=== PATIENT | female | born 1945 | race African-American/Black ===

== ENCOUNTER 2016-09-30 11:28 | Inpatient (IN) | payer MEDICARE, MEDICAID ==
[~2016-09-30] VITALS: Ht 165.1 cm; Wt 65.8 kg
[~2016-09-30 11:28] MED LIST: CLON0.1T PO; LISI-604 PO
[2016-09-30 12:43] LABS: BASOPHILS % 0.4 % (0.0-2.0); DIFFERENTIAL COMMENT 0; EOSINOPHILS % 0.6 % (0.0-5.0); HEMATOCRIT. 40.4 % (36.0-48.0); HEMOGLOBIN. 13.3 g/dL (12.0-16.0); LYMPHOCYTES % 36.7 % (20.0-50.0); MEAN CORPUSCULAR HEMOGLOBIN 26.1 pg (28.0-32.0); MEAN CORPUSCULAR VOLUME 79.2 fL (81.0-99.0); MEAN PLATELET VOLUME 7.9 fl (7.4-10.4); MONOCYTES % 8.5 % (2.0-8.0); NEUTROPHILS % 53.8 % (40.0-76.0); PLATELET 253 x1000/uL (130-400); RED CELL DISTRIBUTION WIDTH 15.5 % (11.6-14.6); WHITE BLOOD COUNT 6.1 x1000/uL (4.5-11.0)
[2016-09-30 12:48] LABS: GLUCOSE URINE NEGATIVE (NEGATIVE); KETONES URINE 2+ (NEGATIVE); LEUKOCYTE ESTERASE URINE 3+ (NEGATIVE); NITRITE URINE NEGATIVE (NEGATIVE); OCCULT BLOOD URINE TRACE (NEGATIVE); PROTEIN URINE 1+ (NEGATIVE); SPECIFIC GRAVITY URINE 1.018 (1.005-1.030)
[2016-09-30 12:49] LABS: CLARITY URINE CLOUDY (CLEAR); COLOR URINE YELLOW (YELLOW)
[2016-09-30 12:49] LABS: CHLORIDE 107 mEq/L (98-107); INDEX HEMOLYSI 2 (1-3); INDEX ICTERIC 1 (1-4); INDEX LIPEMIC 1 (1-3)
[2016-09-30 12:58] LABS: ALANINE AMINOTRANSFERASE 13 IU/L (13-61); ALBUMIN 3.1 g/dL (3.4-5.0); ANION GAP 11; CALCIUM 9.7 mg/dL (8.5-10.1); CARBON DIOXIDE 31 mEq/L (21-32); UREA NITROGEN BLOOD 21 mg/dL (7-21); eGFR > 60 mL/min (>60)
[2016-09-30 13:05] LABS: WBC URINE 15-25 /hpf (0-2)
[2016-09-30 13:06] LABS: BACTERIA URINE 1+; RBC URINE 0-2 /hpf (0-2); SQUAMOUS EPITHELIAL CELL URINE RARE /lpf (RARE/1+)
[2016-09-30] MEDS ORDERED: CEFTRIAXONE 1 G PREMIX 50 ML IV ONE (13:15)
[2016-09-30] MEDS ORDERED: SODIUM CHLORIDE 0.9% 1,000 ML IV ONE (16:09)
[2016-09-30 21:26] VITALS: BP 146/97
[2016-09-30 22:00] VITALS: BP 134/90
[2016-09-30] MEDS ORDERED: DOCUSATE SODIUM 100MG CAPSULE PO PRN (22:45)
[2016-09-30] MEDS ORDERED: IPRATROPIUM/ALBUTEROL 0.5-3(2.5)MG/3ML NEB INH PRN (22:45)
[2016-09-30] MEDS ORDERED: CLONIDINE 0.1MG TABLET PO PRN (22:45)
[2016-09-30] MEDS ORDERED: GUAIFENESIN 200MG/10ML SUGAR FREE UDC PO PRN (22:45)
[2016-09-30] MEDS ORDERED: ONDANSETRON HCL 4MG/2ML VIAL IV PRN (22:45)
[2016-09-30] MEDS ORDERED: LEVOFLOXACIN 500MG PREMIX 100 ML IV SCH ×2 (22:45→23:00)
[2016-09-30] MEDS ORDERED: ACETAMINOPHEN 650MG SUPP PR PRN (22:45)
[2016-09-30] MEDS ORDERED: MAGNESIUM/ALUMINUM HYDROXIDE/SIMETHICONE 30ML UDC PO PRN (22:45)
[2016-09-30] MEDS ORDERED: HYDROCODONE/ACETAMINOPHEN 5/325MG TABLET PO PRN (22:45)
[2016-09-30] MEDS ORDERED: ACETAMINOPHEN 650MG/20.3ML UDC GT PRN (22:45)
[2016-10-01] VITALS: BP 134/84
[2016-10-01] MEDS: LISINOPRIL 10MG TABLET PO SCH ×2 (00:01→11:14)
[2016-10-01] MEDS: SODIUM CHLORIDE 0.9% 1,000 ML IV SCH ×2 (00:02→23:50)
[2016-10-01 04:00] VITALS: BP 110/75
[2016-10-01 05:56] LABS: BASOPHILS % 0.5 % (0.0-2.0); DIFFERENTIAL COMMENT 0; EOSINOPHILS % 1.1 % (0.0-5.0); HEMATOCRIT. 33.7 % (36.0-48.0); HEMOGLOBIN. 10.8 g/dL (12.0-16.0); LYMPHOCYTES % 32.8 % (20.0-50.0); MEAN CORPUSCULAR HEMOGLOBIN 25.6 pg (28.0-32.0); MEAN CORPUSCULAR HGB CONC 32.1 g/dL (31.0-37.0); MEAN CORPUSCULAR VOLUME 79.7 fL (81.0-99.0); MEAN PLATELET VOLUME 7.9 fl (7.4-10.4); MONOCYTES % 10.5 % (2.0-8.0); NEUTROPHILS % 55.1 % (40.0-76.0); PLATELET 223 x1000/uL (130-400); RED BLOOD CELL COUNT 4.23 mill/uL (4.2-5.4); RED CELL DISTRIBUTION WIDTH 15.3 % (11.6-14.6); WHITE BLOOD COUNT 5.9 x1000/uL (4.5-11.0)
[2016-10-01] MEDS: SODIUM CHLORIDE 0.9% INJ 3ML FLUSH IVF SCH ×3 (06:30→20:51)
[2016-10-01 06:53] LABS: ALANINE AMINOTRANSFERASE 8 IU/L (13-61); ALBUMIN 2.4 g/dL (3.4-5.0); ANION GAP 12; CALCIUM 8.6 mg/dL (8.5-10.1); CARBON DIOXIDE 26 mEq/L (21-32); CHLORIDE 110 mEq/L (98-107); HDL CHOLESTEROL 42 mg/dL (40-59); INDEX HEMOLYSI 1 (1-3); INDEX ICTERIC 1 (1-4); INDEX LIPEMIC 1 (1-3); LDL CHOLESTEROL 63 mg/dL (5-100); TRIGLYCERIDE 57 mg/dL (0-150); UREA NITROGEN BLOOD 21 mg/dL (7-21); eGFR > 60 mL/min (>60)
[2016-10-01 07:42] VITALS: BP 127/86
[2016-10-01] MEDS: THIAMINE HCL 100MG TABLET PO SCH (11:14)
[2016-10-01] MEDS: METOPROLOL TARTRATE 25MG TABLET PO SCH ×2 (11:15→17:59)
[2016-10-01] MEDS: ENOXAPARIN 40MG/0.4ML SYR SUBCUT SCH (11:16)
[2016-10-01 12:04] VITALS: BP 118/92
[2016-10-01 16:00] VITALS: BP 127/81
[2016-10-01] MEDS ORDERED: POTASSIUM CHLORIDE 20MEQ TABLET SR PO SCH (19:30)
[2016-10-01 20:02] VITALS: BP 135/88
[2016-10-01] MEDS: LEVOFLOXACIN 500MG PREMIX 100 ML IV SCH (23:48)
[2016-10-02 00:41] VITALS: BP 117/80
[2016-10-02 04:41] VITALS: BP 127/85
[2016-10-02] MEDS: SODIUM CHLORIDE 0.9% INJ 3ML FLUSH IVF SCH ×3 (05:57→22:32)
[2016-10-02 08:00] VITALS: BP 113/68
[2016-10-02] MEDS: LISINOPRIL 10MG TABLET PO SCH (08:46)
[2016-10-02] MEDS: METOPROLOL TARTRATE 25MG TABLET PO SCH ×2 (08:46→16:38)
[2016-10-02] MEDS: ENOXAPARIN 40MG/0.4ML SYR SUBCUT SCH (08:48)
[2016-10-02] MEDS: THIAMINE HCL 100MG TABLET PO SCH (08:48)
[2016-10-02 12:00] VITALS: BP 119/76
[2016-10-02 12:10] LABS: BASOPHILS % 0.5 % (0.0-2.0); DIFFERENTIAL COMMENT 0; EOSINOPHILS % 1.7 % (0.0-5.0); HEMATOCRIT. 31.3 % (36.0-48.0); HEMOGLOBIN. 10.3 g/dL (12.0-16.0); LYMPHOCYTES % 44.3 % (20.0-50.0); MEAN CORPUSCULAR HEMOGLOBIN 26.2 pg (28.0-32.0); MEAN CORPUSCULAR HGB CONC 32.8 g/dL (31.0-37.0); MEAN CORPUSCULAR VOLUME 79.8 fL (81.0-99.0); MEAN PLATELET VOLUME 8.6 fl (7.4-10.4); MONOCYTES % 11.6 % (2.0-8.0); NEUTROPHILS % 41.9 % (40.0-76.0); PLATELET 205 x1000/uL (130-400); RED BLOOD CELL COUNT 3.92 mill/uL (4.2-5.4); RED CELL DISTRIBUTION WIDTH 15.4 % (11.6-14.6); WHITE BLOOD COUNT 5.7 x1000/uL (4.5-11.0)
[2016-10-02 12:35] LABS: ALANINE AMINOTRANSFERASE 10 IU/L (13-61); ALBUMIN 2.2 g/dL (3.4-5.0); ANION GAP 9; CALCIUM 8.6 mg/dL (8.5-10.1); CARBON DIOXIDE 29 mEq/L (21-32); CHLORIDE 111 mEq/L (98-107); INDEX HEMOLYSI 1 (1-3); INDEX ICTERIC 1 (1-4); INDEX LIPEMIC 1 (1-3); UREA NITROGEN BLOOD 20 mg/dL (7-21); eGFR > 60 mL/min (>60)
[2016-10-02 15:44] VITALS: BP 107/72
[2016-10-02 20:00] VITALS: BP 131/78
[2016-10-02] MEDS: LEVOFLOXACIN 500MG PREMIX 100 ML IV SCH (22:33)
[2016-10-03] VITALS: BP 115/71
[2016-10-03] MEDS: SODIUM CHLORIDE 0.9% 1,000 ML IV SCH (03:28)
[2016-10-03] MEDS: SODIUM CHLORIDE 0.9% INJ 3ML FLUSH IVF SCH ×3 (03:28→20:37)
[2016-10-03 04:00] VITALS: BP 130/82
[2016-10-03 08:00] VITALS: BP 138/80
[2016-10-03] MEDS: METOPROLOL TARTRATE 25MG TABLET PO SCH ×3 (08:55→16:56)
[2016-10-03] MEDS: LISINOPRIL 10MG TABLET PO SCH (08:55)
[2016-10-03] MEDS: THIAMINE HCL 100MG TABLET PO SCH (08:56)
[2016-10-03] MEDS: ENOXAPARIN 40MG/0.4ML SYR SUBCUT SCH (08:58)
[2016-10-03 12:00] VITALS: BP 138/82
[2016-10-03 16:00] VITALS: BP 155/95
[2016-10-03 20:00] VITALS: BP 156/95
[2016-10-03] MEDS: LEVOFLOXACIN 500MG PREMIX 100 ML IV SCH (22:23)
[2016-10-04] VITALS: BP_SYST 149; BP_DIAS 92; BP_DIAS 93
[2016-10-04 04:00] VITALS: BP 140/95
[2016-10-04] MEDS: SODIUM CHLORIDE 0.9% INJ 3ML FLUSH IVF SCH ×3 (06:00→21:04)
[2016-10-04 08:00] VITALS: BP 124/73
[2016-10-04] MEDS: THIAMINE HCL 100MG TABLET PO SCH (08:24)
[2016-10-04] MEDS: METOPROLOL TARTRATE 25MG TABLET PO SCH ×2 (08:24→21:04)
[2016-10-04] MEDS: LISINOPRIL 10MG TABLET PO SCH (08:24)
[2016-10-04] MEDS: ENOXAPARIN 40MG/0.4ML SYR SUBCUT SCH (08:25)
[2016-10-04 12:00] VITALS: BP 135/82
[2016-10-04 16:00] VITALS: BP 152/90
[2016-10-04 20:00] VITALS: BP 136/88
[2016-10-04] MEDS: SODIUM CHLORIDE 0.9% 1,000 ML IV SCH (23:41)
[2016-10-04] MEDS: LEVOFLOXACIN 500MG PREMIX 100 ML IV SCH (23:41)
[2016-10-05] VITALS: BP 144/92
[2016-10-05 04:00] VITALS: BP 130/91
[2016-10-05] MEDS: SODIUM CHLORIDE 0.9% INJ 3ML FLUSH IVF SCH (05:32)
[2016-10-05 08:00] VITALS: BP 129/90
[2016-10-05] MEDS: METOPROLOL TARTRATE 25MG TABLET PO SCH (09:35)
[2016-10-05] MEDS: LISINOPRIL 10MG TABLET PO SCH (09:35)
[2016-10-05] MEDS: THIAMINE HCL 100MG TABLET PO SCH (09:35)
[2016-10-05] MEDS: ENOXAPARIN 40MG/0.4ML SYR SUBCUT SCH (09:36)
[2016-10-05 12:00] VITALS: BP 121/81
[2016-10-05 16:00] VITALS: BP 140/86
[2016-10-05] MEDS ORDERED: LEVOFLOXACIN 500MG TABLET PO SCH (17:00)
[2016-10-05 19:28] VITALS: BP 140/86
== END 2016-10-05 20:00 | DRG 871 ==
LOC: ER 12:00 → 8WST 14:48
PROVIDERS: ADMIT Family Medicine; ATTEND Family Medicine
PROC: 0T9B70Z Drainage of Bladder with Drainage Device, Via Natural or Artificial Opening (ICD-10-PCS; principal; 2016-09-30)
DX: A41.9 Sepsis, unspecified organism (principal); E43 Unspecified severe protein-calorie malnutrition; N39.0 Urinary tract infection, site not specified; G81.91 Hemiplegia, unspecified affecting right dominant side; M48.00 Spinal stenosis, site unspecified; M47.9 Spondylosis, unspecified; Z74.01 Bed confinement status; K56.41 Fecal impaction; M41.9 Scoliosis, unspecified; E87.6 Hypokalemia; M16.0 Bilateral primary osteoarthritis of hip; L89.159 Pressure ulcer of sacral region, unspecified stage; D64.9 Anemia, unspecified; E03.9 Hypothyroidism, unspecified; M54.5 Low back pain; F03.90 Unspecified dementia, unspecified severity, without behavioral disturbance, psychotic disturbance, mood disturbance, and anxiety; I10 Essential (primary) hypertension; M43.16 Spondylolisthesis, lumbar region; M48.06 Spinal stenosis, lumbar region; Z86.73 Personal history of transient ischemic attack (TIA), and cerebral infarction without residual deficits; Z87.01 Personal history of pneumonia (recurrent); Z87.81 Personal history of (healed) traumatic fracture; Z68.24 Body mass index [BMI] 24.0-24.9, adult
CPT/HCPCS: 36415; 51702; 71010; 72131; 72148; 73522; 80053; 80061; 81001; 85018; 85025; 87040; 87086; 93005; 96365; 97110; 97162; 97166; 99285; A6261; J0696; J1650; J1956; J7030; A5200

== ENCOUNTER 2018-10-11 13:25 | Inpatient (IN) | payer MEDICARE, MEDICAID ==
[~2018-10-11] VITALS: Ht 162.6 cm; Wt 69.4 kg
[2018-10-11] MEDS ORDERED: DEXT 5%/0.45% NACL 1000ML 1,000 ML IV SCH (17:41)
[2018-10-11] MEDS ORDERED: DOCUSATE SODIUM 100MG CAPSULE PO PRN (17:45)
[2018-10-11] MEDS ORDERED: DIPHENHYDRAMINE 50MG/ML VIAL IV PRN (17:45)
[2018-10-11] MEDS ORDERED: ACETAMINOPHEN 650MG/20.3ML UDC GT PRN (17:45)
[2018-10-11] MEDS ORDERED: NA PHOS,M-B/NA PHOS,DI-BA ENEMA 118ML PR PRN (17:45)
[2018-10-11] MEDS ORDERED: MAGNESIUM/ALUMINUM HYDROXIDE/SIMETHICONE 30ML UDC PO PRN (17:45)
[2018-10-11] MEDS ORDERED: ONDANSETRON HCL 4MG/2ML INJ IV PRN (17:45)
[2018-10-11] MEDS ORDERED: HYDROCODONE/ACETAMINOPHEN 5/325MG TABLET PO PRN (17:45)
[2018-10-11] MEDS ORDERED: IPRATROPIUM/ALBUTEROL 0.5-3(2.5)MG/3ML NEB INH PRN (17:45)
[2018-10-11] MEDS ORDERED: ACETAMINOPHEN 325MG TABLET PO PRN (17:45)
[2018-10-11] MEDS ORDERED: GUAIFENESIN 200MG/10ML SUGAR FREE UDC PO PRN (17:45)
[2018-10-11] MEDS ORDERED: ACETAMINOPHEN 650MG SUPP PR PRN (17:45)
[2018-10-11 18:00] VITALS: BP 182/74
[2018-10-11 18:10] VITALS: BP 182/74
[2018-10-11] MEDS ORDERED: HYDR5SOL2 PO (18:22)
[2018-10-11] MEDS ORDERED: DOCU250C69 PO (18:22)
[2018-10-11] MEDS ORDERED: NA P230E RC (18:22)
[2018-10-11] MEDS ORDERED: BISA10SU62 RC (18:22)
[2018-10-11] MEDS ORDERED: MOM PO (18:27)
[2018-10-11] MEDS ORDERED: CALC-25 PO (18:27)
[2018-10-11] MEDS ORDERED: METO25TA6 MT (18:27)
[2018-10-11] MEDS ORDERED: AMIN30LI2 PO (18:27)
[2018-10-11] MEDS ORDERED: CHOL200010 PO (18:27)
[2018-10-11] MEDS: LISINOPRIL 10MG TABLET PO SCH (18:37)
[2018-10-11 20:00] VITALS: BP 153/79
[2018-10-11 22:00] LABS: CHLORIDE 119 mEq/L (98-107)
[2018-10-11] MEDS ORDERED: SODIUM CHLORIDE 0.9% INJ 3ML FLUSH IVF SCH (22:00)
[2018-10-11 22:04] LABS: BASOPHILS % 0.4 % (0.0-2.0); EOSINOPHILS % 2.7 % (0.0-5.0); HEMATOCRIT. 40.5 % (36.0-48.0); HEMOGLOBIN. 13.2 g/dL (12.0-16.0); LYMPHOCYTES % 39.5 % (20.0-50.0); MEAN CORPUSCULAR HEMOGLOBIN 27.2 pg (28.0-32.0); MEAN CORPUSCULAR VOLUME 83.5 fL (81.0-99.0); MEAN PLATELET VOLUME 9.2 fl (7.4-10.4); MONOCYTES % 9.3 % (2.0-8.0); NEUTROPHILS % 48.1 % (40.0-76.0); PLATELET 170 x1000/uL (130-400); RED BLOOD CELL COUNT 4.85 mill/uL (4.2-5.4); RED CELL DISTRIBUTION WIDTH 14.3 % (11.6-14.6)
[2018-10-12] VITALS: BP 190/80
[2018-10-12] MEDS: CLONIDINE 0.1MG TABLET PO PRN ×2 (00:24→20:42)
[2018-10-12] MEDS: ENOXAPARIN 40MG/0.4ML SYR SUBCUT SCH ×2 (00:57→20:43)
[2018-10-12 04:00] VITALS: BP 146/67
[2018-10-12 07:21] LABS: BASOPHILS % 0.5 % (0.0-2.0); CHLORIDE 117 mEq/L (98-107); EOSINOPHILS % 2.6 % (0.0-5.0); HEMATOCRIT. 37.1 % (36.0-48.0); LYMPHOCYTES % 42.2 % (20.0-50.0); MEAN CORPUSCULAR HEMOGLOBIN 26.9 pg (28.0-32.0); MEAN CORPUSCULAR VOLUME 83.3 fL (81.0-99.0); MEAN PLATELET VOLUME 9.4 fl (7.4-10.4); NEUTROPHILS % 45.7 % (40.0-76.0); PLATELET 156 x1000/uL (130-400); RED BLOOD CELL COUNT 4.45 mill/uL (4.2-5.4); RED CELL DISTRIBUTION WIDTH 14.2 % (11.6-14.6)
[2018-10-12 07:29] LABS: LDL CHOLESTEROL 81 mg/dL (5-100)
[2018-10-12 07:30] LABS: HDL CHOLESTEROL 41 mg/dL (40-59)
[2018-10-12 08:00] VITALS: BP 97/45
[2018-10-12] MEDS: LISINOPRIL 10MG TABLET PO SCH (08:29)
[2018-10-12 12:00] VITALS: BP 118/73
[2018-10-12 16:00] VITALS: BP 115/70
[2018-10-12] MEDS: DEXTROSE 5% WATER 1,000 ML IV SCH (17:31)
[2018-10-12 18:44] LABS: CLARITY URINE CLEAR (CLEAR); COLOR URINE YELLOW (YELLOW); KETONES URINE NEGATIVE (NEGATIVE); LEUKOCYTE ESTERASE URINE 1+ (NEGATIVE); NITRITE URINE POSITIVE (NEGATIVE); OCCULT BLOOD URINE NEGATIVE (NEGATIVE); PH URINE 6.5 (4.5-8.0); PROTEIN URINE NEGATIVE (NEGATIVE); SPECIFIC GRAVITY URINE 1.022 (1.005-1.030)
[2018-10-12 18:55] LABS: *AMPHETAMINES SCREEN URINE NEGATIVE (NEGATIVE); *BARBITURATES SCREEN URINE NEGATIVE (NEGATIVE); *BENZODIAZEPINES SCREEN URINE NEGATIVE (NEGATIVE); *COCAINE SCREEN URINE NEGATIVE (NEGATIVE); METHADONE URINE SCREEN NEGATIVE (NEGATIVE); OPIATES URINE SCREEN NEGATIVE (NEGATIVE)
[2018-10-12 18:56] LABS: CANNABINOID URINE SCREEN NEGATIVE (NEGATIVE); PHENCYCLIDINE URINE SCREEN NEGATIVE (NEGATIVE)
[2018-10-12 20:00] VITALS: BP 198/86
[2018-10-13] VITALS: BP 157/76
[2018-10-13 04:00] VITALS: BP 140/60
[2018-10-13 08:00] VITALS: BP 138/71
[2018-10-13] MEDS: LISINOPRIL 10MG TABLET PO SCH (09:04)
[2018-10-13 12:00] VITALS: BP 167/78
[2018-10-13] MEDS: DEXTROSE 5% WATER 1,000 ML IV SCH ×2 (15:15→17:18)
[2018-10-13 16:00] VITALS: BP 214/111
[2018-10-13] MEDS ORDERED: LEVO500T2 MT (16:25)
[2018-10-13] MEDS: CLONIDINE 0.1MG TABLET PO PRN ×2 (16:37→22:05)
[2018-10-13] MEDS ORDERED: CLONIDINE 0.1MG TABLET PO PRN (16:45)
[2018-10-13] MEDS: LEVOFLOXACIN 500MG TABLET PO SCH (16:46)
[2018-10-13] MEDS: AMLODIPINE 10MG TABLET PO SCH (16:47)
[2018-10-13 20:00] VITALS: BP 166/76
[2018-10-13] MEDS: ENOXAPARIN 40MG/0.4ML SYR SUBCUT SCH (20:33)
[2018-10-14] VITALS: BP 155/71
[2018-10-14 04:00] VITALS: BP 162/72
[2018-10-14] MEDS: CLONIDINE 0.1MG TABLET PO PRN (07:36)
[2018-10-14 08:00] VITALS: BP 160/66
[2018-10-14] MEDS: LISINOPRIL 10MG TABLET PO SCH (08:31)
[2018-10-14] MEDS: AMLODIPINE 10MG TABLET PO SCH (08:31)
[2018-10-14] MEDS: DEXTROSE 5% WATER 1,000 ML IV SCH (08:34)
[2018-10-14 09:05] VITALS: BP 140/76
[2018-10-14] MEDS: LEVOFLOXACIN 500MG TABLET PO SCH (10:28)
[2018-10-14 12:00] VITALS: BP 102/69
[2018-10-14] MEDS ORDERED: NITR100C MT (16:09)
== END 2018-10-14 13:30 | DRG 640 ==
LOC: 6EST 13:25
PROVIDERS: ADMIT Family Medicine; ATTEND Family Medicine
DX: E87.0 Hyperosmolality and hypernatremia (principal); L89.154 Pressure ulcer of sacral region, stage 4; N39.0 Urinary tract infection, site not specified; I69.351 Hemiplegia and hemiparesis following cerebral infarction affecting right dominant side; E46 Unspecified protein-calorie malnutrition; D63.8 Anemia in other chronic diseases classified elsewhere; R62.7 Adult failure to thrive; I10 Essential (primary) hypertension; M48.02 Spinal stenosis, cervical region; J44.9 Chronic obstructive pulmonary disease, unspecified; M47.9 Spondylosis, unspecified; B96.89 Other specified bacterial agents as the cause of diseases classified elsewhere; M17.0 Bilateral primary osteoarthritis of knee; Z74.01 Bed confinement status; Z68.26 Body mass index [BMI] 26.0-26.9, adult
CPT/HCPCS: 36415; 71045; 80061; 80305; 87077; 87186; 93970; C1893; J1650; J7070

== ENCOUNTER 2019-03-19 16:14 | Inpatient (IN) | payer MEDICARE, MEDICAID ==
[~2019-03-19] VITALS: Ht 172.7 cm; Wt 63.5 kg
[~2019-03-19 16:14] MED LIST changes: +AMIN30LI2 PO; +BISA10SU62 RC; +CALC-25 PO; +CHOL200010 PO; +DOCU250C69 PO; +HYDR5SOL2 PO; +METO25TA6 MT; +MOM PO; +NA P230E RC; +NITR100C MT
[2019-03-19 16:30] VITALS: BP 129/69
[2019-03-19] MEDS ORDERED: HYDR-4001 PO (18:40)
[2019-03-19] MEDS ORDERED: AMLO10TA80 PO (18:40)
[2019-03-19] MEDS ORDERED: LISI10TA5 PO (18:40)
[2019-03-19] MEDS ORDERED: CLON0.1T PO (18:40)
[2019-03-19] MEDS ORDERED: DOCUSATE SODIUM 100MG CAPSULE PO PRN (19:15)
[2019-03-19] MEDS ORDERED: MAGNESIUM/ALUMINUM HYDROXIDE/SIMETHICONE 30ML UDC PO PRN (19:15)
[2019-03-19] MEDS ORDERED: CLONIDINE 0.1MG TABLET PO PRN (19:15)
[2019-03-19] MEDS ORDERED: ACETAMINOPHEN 325MG TABLET PO PRN (19:15)
[2019-03-19] MEDS ORDERED: IPRATROPIUM/ALBUTEROL 0.5-3(2.5)MG/3ML NEB NEB PRN (19:15)
[2019-03-19] MEDS ORDERED: ONDANSETRON HCL 4MG/2ML INJ IV PRN (19:15)
[2019-03-19] MEDS ORDERED: HYDROCODONE/ACETAMINOPHEN 5/325MG TABLET PO PRN (19:15)
[2019-03-19 20:00] VITALS: BP 153/74
[2019-03-19] MEDS: CLONIDINE 0.1MG TABLET PO SCH (22:14)
[2019-03-20] VITALS: BP 158/69
[2019-03-20 04:00] VITALS: BP 121/67
[2019-03-20 06:21] LABS: BASOPHILS % 0.4 % (0.0-2.0); EOSINOPHILS % 2.8 % (0.0-5.0); HEMATOCRIT. 38.3 % (36.0-48.0); HEMOGLOBIN. 12.5 g/dL (12.0-16.0); LYMPHOCYTES % 32.6 % (20.0-50.0); MEAN CORPUSCULAR HEMOGLOBIN 27.3 pg (28.0-32.0); MEAN CORPUSCULAR VOLUME 83.5 fL (81.0-99.0); MONOCYTES % 8.1 % (2.0-8.0); NEUTROPHILS % 56.1 % (40.0-76.0); RED BLOOD CELL COUNT 4.58 mill/uL (4.2-5.4); RED CELL DISTRIBUTION WIDTH 14.5 % (11.6-14.6)
[2019-03-20 06:28] LABS: CHLORIDE 113 mEq/L (98-107)
[2019-03-20 06:37] LABS: LDL CHOLESTEROL 87 mg/dL (5-100); PHOSPHORUS 3.1 mg/dL (2.5-4.9)
[2019-03-20 06:38] LABS: HDL CHOLESTEROL 46 mg/dL (40-59)
[2019-03-20 08:00] VITALS: BP 114/65
[2019-03-20] MEDS ORDERED: AMLODIPINE 10MG TABLET PO SCH (09:00)
[2019-03-20] MEDS: AMLODIPINE 5MG TABLET PO SCH (10:10)
[2019-03-20] MEDS: DOCUSATE SODIUM 250MG CAPSULE PO SCH (10:10)
[2019-03-20] MEDS: LISINOPRIL 10MG TABLET PO SCH (10:11)
[2019-03-20] MEDS: BISACODYL 10MG SUPP RC SCH (10:11)
[2019-03-20] MEDS: CLONIDINE 0.1MG TABLET PO SCH (10:11)
[2019-03-20 11:03] LABS: PLATELET 200 x1000/uL (130-400)
[2019-03-20 12:00] VITALS: BP 130/72
[2019-03-20] MEDS: ENOXAPARIN 40MG/0.4ML SYR SUBCUT SCH (13:57)
[2019-03-20 16:00] VITALS: BP 133/66
[2019-03-20 17:24] LABS: CLARITY URINE CLEAR (CLEAR); COLOR URINE YELLOW (YELLOW); KETONES URINE NEGATIVE (NEGATIVE); LEUKOCYTE ESTERASE URINE NEGATIVE (NEGATIVE); NITRITE URINE NEGATIVE (NEGATIVE); OCCULT BLOOD URINE NEGATIVE (NEGATIVE); PH URINE 5.5 (4.5-8.0); PROTEIN URINE NEGATIVE (NEGATIVE); SPECIFIC GRAVITY URINE 1.013 (1.005-1.030); UROBILINOGEN URINE 0.2 E.U./dL (0.2-1.0)
[2019-03-20 20:00] VITALS: BP 155/78
[2019-03-21] VITALS: BP 142/70
[2019-03-21 04:00] VITALS: BP 120/61
[2019-03-21 06:35] LABS: HEMATOCRIT. 37.8 % (36.0-48.0); HEMOGLOBIN. 12.2 g/dL (12.0-16.0); RED BLOOD CELL COUNT 4.51 mill/uL (4.2-5.4)
[2019-03-21 06:36] LABS: BASOPHILS % 0.4 % (0.0-2.0); EOSINOPHILS % 1.4 % (0.0-5.0); LYMPHOCYTES % 31.2 % (20.0-50.0); MEAN CORPUSCULAR VOLUME 83.8 fL (81.0-99.0); MEAN PLATELET VOLUME 8.9 fl (7.4-10.4); MONOCYTES % 7.6 % (2.0-8.0); NEUTROPHILS % 59.4 % (40.0-76.0); PLATELET 195 x1000/uL (130-400); RED CELL DISTRIBUTION WIDTH 14.6 % (11.6-14.6)
[2019-03-21 06:46] LABS: CHLORIDE 110 mEq/L (98-107)
[2019-03-21 08:00] VITALS: BP 105/71
[2019-03-21] MEDS: LISINOPRIL 10MG TABLET PO SCH (08:43)
[2019-03-21] MEDS: BISACODYL 10MG SUPP RC SCH (08:43)
[2019-03-21] MEDS: AMLODIPINE 5MG TABLET PO SCH (08:43)
[2019-03-21] MEDS: DOCUSATE SODIUM 250MG CAPSULE PO SCH (08:44)
[2019-03-21] MEDS: METHIMAZOLE 5MG TABLET PO SCH (08:44)
[2019-03-21 12:00] VITALS: BP 145/65
[2019-03-21] MEDS: ENOXAPARIN 40MG/0.4ML SYR SUBCUT SCH (13:09)
[2019-03-21 16:00] VITALS: BP 115/62
[2019-03-21 20:00] VITALS: BP 151/68
[2019-03-22] VITALS (7 sets, daily range): BP systolic 144–167; BP diastolic 70–82
[2019-03-22 07:30] LABS: BASOPHILS % 0.4 % (0.0-2.0); EOSINOPHILS % 1.4 % (0.0-5.0); HEMATOCRIT. 37.7 % (36.0-48.0); HEMOGLOBIN. 12.3 g/dL (12.0-16.0); MEAN CORPUSCULAR HEMOGLOBIN 26.8 pg (28.0-32.0); MEAN CORPUSCULAR VOLUME 82.4 fL (81.0-99.0); MEAN PLATELET VOLUME 9.3 fl (7.4-10.4); MONOCYTES % 7.6 % (2.0-8.0); NEUTROPHILS % 61.6 % (40.0-76.0); PLATELET 200 x1000/uL (130-400); RED BLOOD CELL COUNT 4.57 mill/uL (4.2-5.4); RED CELL DISTRIBUTION WIDTH 14.6 % (11.6-14.6)
[2019-03-22 08:05] LABS: CHLORIDE 111 mEq/L (98-107)
[2019-03-22] MEDS: DOCUSATE SODIUM 250MG CAPSULE PO SCH (09:00)
[2019-03-22] MEDS: METHIMAZOLE 5MG TABLET PO SCH (09:51)
[2019-03-22] MEDS: BISACODYL 10MG SUPP RC SCH (09:51)
[2019-03-22] MEDS: LISINOPRIL 10MG TABLET PO SCH (09:51)
[2019-03-22] MEDS: AMLODIPINE 5MG TABLET PO SCH (09:52)
[2019-03-22] MEDS: ENOXAPARIN 40MG/0.4ML SYR SUBCUT SCH (12:11)
== END 2019-03-22 21:28 | DRG 643 ==
LOC: 6EST 16:14
PROVIDERS: ADMIT Specialist; ATTEND Specialist
DX: E05.90 Thyrotoxicosis, unspecified without thyrotoxic crisis or storm (principal); G93.41 Metabolic encephalopathy; I69.351 Hemiplegia and hemiparesis following cerebral infarction affecting right dominant side; E46 Unspecified protein-calorie malnutrition; N12 Tubulo-interstitial nephritis, not specified as acute or chronic; E86.0 Dehydration; M17.0 Bilateral primary osteoarthritis of knee; D63.8 Anemia in other chronic diseases classified elsewhere; F03.90 Unspecified dementia, unspecified severity, without behavioral disturbance, psychotic disturbance, mood disturbance, and anxiety; I10 Essential (primary) hypertension; M48.02 Spinal stenosis, cervical region; R62.7 Adult failure to thrive; Z74.01 Bed confinement status; Z68.21 Body mass index [BMI] 21.0-21.9, adult; Z79.899 Other long term (current) drug therapy
CPT/HCPCS: 36415; 71045; 76536; 80048; 80061; 81003; 82962; 83520; 83735; 84100; 84439; 84443; 84480; 84484; 86376; 93970; 97162; 97166; J1650; J7040; A4315

== ENCOUNTER 2020-03-30 14:52 | Emergency (ER) | payer MEDICAID, MEDICARE ==
[~2020-03-30] VITALS: Ht 165.1 cm; Wt 55.0 kg
[~2020-03-30 14:52] MED LIST changes: +AMLO10TA80 PO; +HYDR-4001 PO; +LISI10TA5 PO
[2020-03-30 17:23] LABS: CLARITY URINE CLEAR (CLEAR); COLOR URINE YELLOW (YELLOW); KETONES URINE NEGATIVE (NEGATIVE); LEUKOCYTE ESTERASE URINE 1+ (NEGATIVE); NITRITE URINE POSITIVE (NEGATIVE); OCCULT BLOOD URINE NEGATIVE (NEGATIVE); PROTEIN URINE NEGATIVE (NEGATIVE); SPECIFIC GRAVITY URINE 1.029 (1.005-1.030); UROBILINOGEN URINE 0.2 E.U./dL (0.2-1.0)
[2020-03-30 17:37] LABS: BASOPHILS % 0.6 % (0.0-2.0); EOSINOPHILS % 2.5 % (0.0-5.0); HEMATOCRIT. 34.8 % (36.0-48.0); HEMOGLOBIN. 11.3 g/dL (12.0-16.0); LYMPHOCYTES % 36.5 % (20.0-50.0); MEAN CORPUSCULAR HEMOGLOBIN 27.4 pg (28.0-32.0); MEAN CORPUSCULAR VOLUME 84.1 fL (81.0-99.0); MEAN PLATELET VOLUME 11.2 fl (7.4-10.4); MONOCYTES % 8.4 % (2.0-8.0); PLATELET 143 x1000/uL (130-400); RED BLOOD CELL COUNT 4.13 mill/uL (4.2-5.4); RED CELL DISTRIBUTION WIDTH 15.3 % (11.6-14.6)
[2020-03-30 17:43] LABS: CHLORIDE 115 mEq/L (98-107)
[2020-03-30 17:46] LABS: INR 1.1; PROTHROMBIN TIME 11.5 sec (9.6-11.0)
[2020-03-30] MEDS ORDERED: CEFTRIAXONE 1 G PREMIX 50 ML IV NR (18:03)
[2020-03-31 01:17] VITALS: BP 130/72
== END 2020-03-31 01:30 | disposition short-term general hospital (02) ==
LOC: ER 14:52 → EDBEDREQTM 17:08 → EDBEDREQ 17:08 → CMPBEDREQ 22:40 → ER 03-31 01:30
DX: R62.7 Adult failure to thrive (principal); N39.0 Urinary tract infection, site not specified; D64.9 Anemia, unspecified; J44.9 Chronic obstructive pulmonary disease, unspecified; I10 Essential (primary) hypertension; I69.351 Hemiplegia and hemiparesis following cerebral infarction affecting right dominant side; Z86.19 Personal history of other infectious and parasitic diseases
CPT/HCPCS: 36415; 70450; 71045; 80053; 81003; 83605; 83880; 84145; 84484; 85025; 85610; 87077; 87086; 87186; 87426; 93005; 96365; 99285; J0696